=== PATIENT | female | born 1995 | race Caucasian/White ===

== ENCOUNTER 2022-10-08 17:20 | Emergency (ER) | payer OTHER ==
[2022-10-08] MEDS ORDERED: Lidocaine 1% 5 ML VIAL INJECT ONE (18:01)
[2022-10-08] MEDS ORDERED: Bacitracin Oint 1 GM U/D Packet TOP ONE (18:01)
== END 2022-10-08 19:20 | disposition home or self-care (01) ==
LOC: JP.ED 17:20
DX: S01.81XA Laceration without foreign body of other part of head, initial encounter (principal); J45.909 Unspecified asthma, uncomplicated; W18.09XA Striking against other object with subsequent fall, initial encounter; Y92.002 Bathroom of unspecified non-institutional (private) residence as the place of occurrence of the external cause
CPT/HCPCS: 12011; 99282